=== PATIENT | female | born 1960 | race Caucasian/White ===

== ENCOUNTER 2018-11-06 11:25 | Day surgery (SDC) | payer OTHER ==
[~2018-11-06] VITALS: Ht 160 cm; Wt 70.1 kg
[~2018-11-06 11:25] MED LIST: METFORMIN; ZANTAC
[2018-11-06 12:18] VITALS: Ht 160 cm; Wt 70.1 kg
[2018-11-06] MEDS ORDERED: GABA100C14 PO (12:27)
[2018-11-06] MEDS ORDERED: METF500T PO (12:27)
[2018-11-06 12:52] VITALS: BP 159/85; PULSE 101; RESP 18
--- NOTE | 2018-11-06 13:52 | PREAC ---
Date/Time of Note Date/Time of Note DATE: 11/06/18 TIME: 13:50 Anesthesia Eval and Record Evaluation Time Pre-Procedure Interview DATE: 11/06/18 TIME: 13:50 Age 57 Sex female NPO: 8 hrs Preoperative diagnosis Abdominal Pain Planned procedure EGD Past Medical History Past Medical History: Includes Endo: Diabetes Musculoskeletal: Osteoarthritis GI: Other (Fatty Liver) Surgery & Anesthesia Issues No known issue Meds Anticoagulation: No Beta Theresa within 24 hr: No Reason Beta Theresa not given: Pt. not on B-Theresa Reported Medications Metformin Hcl (Glucophage) 500 Mg Tablet, 500 MG PO WITH BREAKFAST, #30 TAB 11/06/18 Gabapentin* (Gabapentin*) 100 Mg Capsule, 100 MG PO TID, #90 CAP 11/06/18 Discontinued Reported Medications [Zantac] No Conflict Check 12/29/15 [Metformin] No Conflict Check 12/29/15 Meds reviewed: Yes Allergies Coded Allergies: No Known Allergy (Unverified , 12/29/15) Allergies Reviewed: Yes Labs/Studies Labs Reviewed: Reviewed by anesthesiologist test: N/A Pre-procedure Exam Last vitals Vital Signs Date Temp Pulse Resp B/P (MAP) Pulse Ox O2 O2 Flow FiO2 Time Delivery Rate 11/06/18 98.0 101 18 159/85 98 Room Air 12:52 (109) Airway: Adequate mouth opening, Adequate thyromental dist Mallampati: Mallampati II Teeth: Normal Lung: Normal Heart: Normal ASA Physical Status ASA physical status: 2 Emergency: None Planned Anesthetic General/MAC: MAC Planned Pain Management Parenteral pain med Pre-operative Attestations Prior to commencing anesthesia and surgery, the patient was re-evaluated, there was verification of: *The patient's identity *The results of appropriate recent lab work and preoperative vital signs *The above evaluation not changing prior to induction *Anesthetic plan, risk benefits, alternative and complications discussed with patient/family; questions answered; patient/family understands, accepts and wishes to proceed. SUZY MEHTA MD Nov 06, 2018 13:52
[2018-11-06] MEDS ORDERED: PROPOFOL 20 ML ONE (15:07)
--- NOTE | 2018-11-06 15:15 | PAC ---
Date/Time of Note Date/Time of Note DATE: 11/06/18 TIME: 15:15 Post-Anesthesia Notes Post-Anesthesia Note Last documented vital signs Vital Signs Date Temp Pulse Resp B/P (MAP) Pulse Ox O2 O2 Flow FiO2 Time Delivery Rate 11/06/18 98.0 101 18 159/85 98 Room Air 14:52 (109) Activity: WNL Respiratory function: WNL Cardiovascular function: WNL Mental status: Baseline Pain reasonably controlled: Yes Hydration appropriate: Yes Nausea/Vomiting absent: Yes SUZY MEHTA MD Nov 06, 2018 15:15
[2018-11-06 15:35] VITALS: BP 134/79; PULSE 91; RESP 12
== END 2018-11-06 16:46 | disposition home or self-care (01) ==
LOC: GIL 11:25
PROVIDERS: ATTEND Internal Medicine Gastroenterology
DX: K29.60 Other gastritis without bleeding (principal); E11.9 Type 2 diabetes mellitus without complications
CPT/HCPCS: 43239; 82962; 88305; 88312; Z7610